=== PATIENT | male | born 1980 | race Caucasian/White ===

== ENCOUNTER 2022-05-19 21:41 | Inpatient (IN) | payer MEDICAID ==
[~2022-05-19] VITALS: Ht 170.2 cm; Wt 85.3 kg
[2022-05-19 21:41] VITALS: BP 80/52
--- NOTE | 2022-05-19 21:43 | NUR ---
PT [facility] ER BED 1
--- NOTE | 2022-05-19 21:45 | NUR ---
pt biba from [facility] with hypotentesion and alter mental status. he is not alert and history of stroke, and dialysis. pt has a trach connected to mechanical ventilator, he is unable to ambulate and pt has a g tube and has presuure ulcers in the sacrum. He has actively C DIFF Hx C DIFF, HTN, respiratory failure, bacteremia, trach, anemia aand ESRD
--- NOTE | 2022-05-19 21:45 | NUR ---
DIALYSIS DAYS //SAT
[2022-05-19] MEDS: NACL 0.9% 2,000 ML IV ONE ×2 (21:55→23:11)
[2022-05-19 22:09] LABS: BASOPHILS % (AUTO) 0.8 % (0.0-2.0); EOSINOPHILS # (AUTO) 0.1 K/uL (0-0.4); EOSINOPHILS % (AUTO) 2.9 % (0.0-4.0); LYMPHOCYTES # (AUTO) 0.5 K/uL (2.0-11.5); LYMPHOCYTES % (AUTO) 13.5 % (20.5-51.1); MEAN CORPUSCULAR HEMOGLOBIN 27 pg (27-31); MEAN CORPUSCULAR HGB CONC 32 g/dL (33-37); MEAN CORPUSCULAR VOLUME 85.8 fL (80-94); MONOCYTES # (AUTO) 0.3 K/uL (0.8-1.0); MONOCYTES % (AUTO) 7.8 % (1.7-9.3); NEUTROPHILS # (AUTO) 2.8 K/uL (1.8-7.7); PLATELET COUNT (AUTO) 203 K/uL (140-450); RED BLOOD CELL COUNT(AUTO) 2.09 MIL/uL (4.20-6.10); RED CELL DISTRIBUTION WIDTH 17.9 % (11.6-13.7); WHITE BLOOD COUNT (AUTO) 3.8 K/uL (4.8-10.8)
[2022-05-19 22:15] LABS: HEMATOCRIT 17.9 % (36-52); HEMOGLOBIN 5.7 g/dL (12.0-18.0)
[2022-05-19 22:27] VITALS: BP 80/52
[2022-05-19 22:29] LABS: PROTHROMBIN TIME 10.9 secs (10.8-13.4)
[2022-05-19 22:42] LABS: ALBUMIN 2.6 g/dL (3.4-5.0); ANION GAP 15.3 (8-16); CARBON DIOXIDE 27.8 mmol/L (21-32); POTASSIUM 4.1 mmol/L (3.5-5.1); TOTAL BILIRUBIN 0.5 mg/dL (0.0-1.0)
[2022-05-19 22:47] LABS: CREATININE 9.5 mg/dL (0.6-1.3)
[2022-05-19 22:59] LABS: BILIRUBIN,URINE NEGATIVE (NEGATIVE); BLOOD, URINE 3+ (NEGATIVE); LEUKOCYTE ESTERASE ,URINE NEGATIVE (NEGATIVE); NITRITE, URINE POSITIVE (NEGATIVE); PH,URINE 5.5 (5.0-9.0); UGLUCOSE NEGATIVE (NEGATIVE)
[2022-05-19 23:03] LABS: BASOPHILS # (AUTO) 0.1 K/uL (0.00-0.22); BASOPHILS % (AUTO) 1.3 % (0.0-2.0); EOSINOPHILS # (AUTO) 0.1 K/uL (0-0.4); EOSINOPHILS % (AUTO) 2.7 % (0.0-4.0); LYMPHOCYTES # (AUTO) 0.5 K/uL (2.0-11.5); LYMPHOCYTES % (AUTO) 12.3 % (20.5-51.1); MEAN CORPUSCULAR HEMOGLOBIN 27 pg (27-31); MEAN CORPUSCULAR HGB CONC 32 g/dL (33-37); MEAN CORPUSCULAR VOLUME 83.3 fL (80-94); MONOCYTES # (AUTO) 0.4 K/uL (0.8-1.0); MONOCYTES % (AUTO) 10.7 % (1.7-9.3); PLATELET COUNT (AUTO) 201 K/uL (140-450); RED BLOOD CELL COUNT(AUTO) 1.94 MIL/uL (4.20-6.10); RED CELL DISTRIBUTION WIDTH 17.1 % (11.6-13.7); WHITE BLOOD COUNT (AUTO) 4.2 K/uL (4.8-10.8)
[2022-05-19 23:19] LABS: HEMATOCRIT 16.2 % (36-52); HEMOGLOBIN 5.2 g/dL (12.0-18.0)
[2022-05-19] MEDS ORDERED: PIPERACILLIN/TAZOBACTAM 3.375 GM in DEXTROSE 5% 50 ML IV ONE (23:20)
[2022-05-19] MEDS ORDERED: VANCOMYCIN 1,000 MG in DEXTROSE 5% 250 ML IV ONE (23:20)
[2022-05-19] MEDS ORDERED: PANTOPRAZOLE 40 MG INJ VIAL IVP ONE (23:20)
[2022-05-19 23:22] LABS: APPEARANCE,URINE SLIGHTLY HAZY (CLEAR); COLOR,URINE DARK YELLOW (YELLOW)
[2022-05-19 23:41] LABS: CKMB RELATIVE INDEX 0.1 (0.0-2.5); CREATINE KINASE MB 0.4 ng/mL (0-3.6)
[2022-05-20] VITALS (24 sets, daily range): BP systolic 101–155; BP diastolic 54–93
[2022-05-20] MEDS ORDERED: VANCOMYCIN 1,000 MG VIAL ONE (00:08)
[2022-05-20] MEDS ORDERED: PIPERACILLIN/TAZOBACTAM 3.375 GM VIAL IV ONE (00:09)
[2022-05-20] MEDS ORDERED: NOREPINEPHRINE IV SCH (01:50)
[2022-05-20] MEDS ORDERED: DEXTROSE 5% IV SCH (01:50)
[2022-05-20] MEDS ORDERED: KEP500L PO (02:28)
[2022-05-20] MEDS ORDERED: LISI-486 PO (02:28)
[2022-05-20] MEDS ORDERED: PRO5 PO (02:28)
[2022-05-20] MEDS ORDERED: ACET-2619 PO (02:28)
[2022-05-20] MEDS ORDERED: FLOR250 PO (02:28)
[2022-05-20] MEDS ORDERED: ONDA-188 PO (02:28)
[2022-05-20] MEDS ORDERED: ASCO500T95 PO (02:28)
[2022-05-20] MEDS ORDERED: ZINC220C9 PO (02:28)
[2022-05-20] MEDS ORDERED: [UNRECOGNIZED DRUG - CODE] PO (02:28)
[2022-05-20] MEDS ORDERED: LEVO750T75 PO (02:28)
[2022-05-20] MEDS ORDERED: QUET25TA PO (02:28)
[2022-05-20] MEDS ORDERED: FLUC100T PO (02:28)
[2022-05-20] MEDS ORDERED: LEVE1000 PO (02:28)
--- NOTE | 2022-05-20 04:13 | NUR ---
Note saul in EDM - 05/20/22 at 0428 by [id number] Patient will be admitted to care of sepsis. Admited to icu. Will go to room 7. Belongings list completed. Report to david.
--- NOTE | 2022-05-20 04:28 | NUR ---
Patient will be admitted to [facility]. Admited tO ICU. Will go to room 7. Belongings list completed. Report to .
[2022-05-20] MEDS ORDERED: THERAHONEY GEL 42.5 GM TP SCH (06:05)
[2022-05-20] MEDS ORDERED: VANCOMYCIN PER PHARMACY MC PRN (07:15)
[2022-05-20] MEDS ORDERED: MORPHINE SULFATE 2 MG/ML SYR IVP PRN (07:20)
[2022-05-20] MEDS ORDERED: ONDANSETRON 4 MG/2 ML VIAL IVP PRN (07:20)
[2022-05-20] MEDS ORDERED: LORazepam 2 MG/ML VIAL IVP PRN (07:20)
[2022-05-20] MEDS ORDERED: MAG SULF 2000 MG/WATER PREMIX 50 ML IV PRN (07:20)
[2022-05-20] MEDS ORDERED: ACETAMINOPHEN 325 MG TAB PO PRN (07:20)
[2022-05-20] MEDS ORDERED: DOCUSATE 100 MG/10 ML UDC PO PRN (08:20)
[2022-05-20] MEDS ORDERED: POTASSIUM CHLORIDE 20% 40 MEQ/15 ML UDC PO PRN (08:20)
[2022-05-20] MEDS ORDERED: ZOLPIDEM 5 MG TAB PO PRN (08:20)
[2022-05-20] MEDS: levETIRAcetam 100 MG/ML ORASYR PO SCH ×2 (08:59→21:14)
[2022-05-20] MEDS: PANTOPRAZOLE 40 MG INJ VIAL IVP SCH (09:00)
[2022-05-20] MEDS: MIDODRINE 5 MG TAB PO SCH ×3 (09:00→17:37)
[2022-05-20 11:49] LABS: HEMATOCRIT 26.4 % (36-52); HEMOGLOBIN 8.7 g/dL (12.0-18.0)
[2022-05-20] MEDS ORDERED: Z-GUARD PASTE TP ONE (12:05)
[2022-05-20] MEDS: PIPERACILLIN/TAZOBACTAM 2.25 GM in DEXTROSE 5% 50 ML IV SCH ×2 (12:41→21:14)
--- NOTE | 2022-05-20 13:30 | NUR ---
WOUND CARE EVALUATION NOTES: REASON FOR EVALUATION: SACRAL WOUND WOUND ASSESSMENT COMPLETED ON THIS 41 Y/O MALE ADMITTED TO ICU FOR SEPSIS. PATIENT IS FROM [facility]. PAST MEDICAL HISTORY INCLUDES EPILEPSY, ESRD ON DIALYSIS, CHRONIC RESPIRATORY FAILURE ON VENT, SACRAL ULCER, HYDROCEPHALUS. ALL ABOVE INFORMATION WAS OBTAINED FROM THE ADMISSION H&P. PATIENT IS APHASIC. SKIN IS WARM TO TOUCH. TOTAL CARE PATIENT, REQUIRES ASSISTANCE WITH ALL ADLS. PLAN OF CARE AND PRESSURE PREVENTATIVE MEASURES DISCUSSED WITH PATIENT AND PRIMARY RN. PATIENT UNABLE TO COMPREHEND. PATIENT ADMITTED WITH PRESSURE ULCER TO SACRALCOCCYX AND PERINEAL MAD WITH DENUDED SKIN. COMORBIDITIES RELATED TO FURTHER SKIN BREAKDOWN SUCH IMPAIRED MOBILITY, LOW ALBUMIN LEVEL. INTEGUMENTARY: - SACRALCOCCYX PRESSURE ULCER STAGE III. WOUND BED RED, MINIMAL SEROSANGUINOUS DISCHARGE, GRANULATING, LESS THAN 15% SLOUGH, NO ODOR. PERIWOUND RED, MOIST, DENUDED. -PERINEAL REDNESS WITH DENUDED SKIN. NO DISCHARGE, NO ODOR. PERIWOUND RED, MOIST, DENUDED. RECOMMENDATIONS: - SACRALCOCCYX PRESSURE ULCER STAGE III: CLEANSE WITH NS, PAT DRY, APPLY THERAHONEY, APPLY Z-GAURD TO PERIWOUND, AND COVER WITH FOAM DRESSING DAILY AND PRN IF SOILED. - PERINEAL REDNESS WITH DENUDED SKIN: CLEANSE WITH NS OR SOAPY WATER, PAT DRY, APPLY Z-GAURD CREAM TO AREA, AND LEAVE CRYOGENICS ENGINEER DAILY AND PRN IF SOILED. - OFFLOAD BILATERAL HEELS BY PLACING BILATERAL HEEL PROTECTORS. - TURN AND REPOSITION PATIENT Q2H TO LEFT AND RIGHT SIDE TO OFFLOAD SACRALCOCCYX. - ASSESS AND MONITOR SKIN CONDITION DURING POSITION CHANGE. PLEASE PAY ATTENTION TO SACRALCOCCYX AND HEELS. - KEEP SKIN DRY AND CLEAN AT ALL TIMES. - RD CONSULT RECOMMENDATIONS DISCUSSED WITH PRIMARY RN. WILL FOLLOW-UP PATIENT Q7-10 DAYS AND PRN. PLEASE CONTACT WOUND CARE NURSE FOR ANY CONCERNS AND CHANGES IN WOUND CONDITION.
[2022-05-21] VITALS (29 sets, daily range): BP systolic 112–154; BP diastolic 70–99
[2022-05-21] MEDS: THERAHONEY GEL 42.5 GM TP SCH ×2 (00:24→13:02)
[2022-05-21] MEDS: Z-GUARD PASTE TP SCH ×2 (00:24→13:03)
[2022-05-21] MEDS: PIPERACILLIN/TAZOBACTAM 2.25 GM in DEXTROSE 5% 50 ML IV SCH ×3 (05:00→21:26)
[2022-05-21 06:49] LABS: ANION GAP 14.8 (8-16); POTASSIUM 3.8 mmol/L (3.5-5.1)
[2022-05-21 07:09] LABS: BASOPHILS % (AUTO) 1.1 % (0.0-2.0); EOSINOPHILS # (AUTO) 0.1 K/uL (0-0.4); EOSINOPHILS % (AUTO) 3.1 % (0.0-4.0); HEMATOCRIT 26.2 % (36-52); HEMOGLOBIN 8.8 g/dL (12.0-18.0); LYMPHOCYTES # (AUTO) 0.7 K/uL (2.0-11.5); LYMPHOCYTES % (AUTO) 20.2 % (20.5-51.1); MEAN CORPUSCULAR HEMOGLOBIN 28 pg (27-31); MEAN CORPUSCULAR HGB CONC 34 g/dL (33-37); MEAN CORPUSCULAR VOLUME 83.7 fL (80-94); MONOCYTES # (AUTO) 0.3 K/uL (0.8-1.0); MONOCYTES % (AUTO) 9.4 % (1.7-9.3); NEUTROPHILS # (AUTO) 2.3 K/uL (1.8-7.7); NEUTROPHILS % (AUTO) 66.2 % (42.2-75.2); PLATELET COUNT (AUTO) 250 K/uL (140-450); RED BLOOD CELL COUNT(AUTO) 3.12 MIL/uL (4.20-6.10); RED CELL DISTRIBUTION WIDTH 16.6 % (11.6-13.7); WHITE BLOOD COUNT (AUTO) 3.4 K/uL (4.8-10.8)
--- NOTE | 2022-05-21 07:22 | NUR ---
REPORT GIVEN TO LUIS ALBERTO, PT STABLE. NOTIFIED OF DOWNWARD TRENDING BUT STILL CRITICAL VALUE OF CREATININE OF 6
--- NOTE | 2022-05-21 07:25 | NUR ---
got report from the night nurse, pt resting moves the head at a time, track to vent.[email or web address]
[2022-05-21] MEDS: MIDODRINE 5 MG TAB PO SCH ×3 (08:58→17:19)
[2022-05-21] MEDS: PANTOPRAZOLE 40 MG INJ VIAL IVP SCH (08:58)
[2022-05-21] MEDS: levETIRAcetam 100 MG/ML ORASYR PO SCH ×2 (08:59→21:28)
--- NOTE | 2022-05-21 09:25 | NUR ---
PATIENT HAS BEEN SCREENED AND CATEGORIZED HIGH NUTRITION RISK. PATIENT WILL BE SEEN WITHIN 1-2 DAYS OF ADMISSION. 05/20/22-05/22/[address] [facility] CONSULT & REFERRAL RECEIVED FOR WOUNDS/PRESSURE ULCERS, DIET EDUCATION ON FOOD/DRUG INTERACTION, AND DIARRHEA > 3 DAYS.
--- NOTE | 2022-05-21 09:57 | NUR ---
RECEIVED ON A [place] [employer]APE R860 VENTILATOR PLUGGED INTO RED OUTLET TOLERATING WELL WITHOUT ADVERSE REACTIONS NOTED TO A EJ DCT #8 AIRWAY SECURED WITH A TRACH TIE CUFF PRESSURE CHECKED NOTED AMBU BAG AT BEDSIDE STABLE GOOD CHEST RISE DEEP TRACHEAL SUCTION FOR LARGE THICK YELLOW SECRETIONS AIRWAY PATENT
[2022-05-21] MEDS ORDERED: VANCOMYCIN 1,000 MG in DEXTROSE 5% 250 ML IV SCH (11:00)
--- NOTE | 2022-05-21 11:00 | NUR ---
PT SUCTIONED AND RESTING , THE MOTHER AT BED SIDE.[email or web address]
[2022-05-21] MEDS ORDERED: NOREPINEPHRINE 4 MG in DEXTROSE 5% 250 ML IV PRN (11:35)
[2022-05-21] MEDS: MUPIROCIN CA NASAL 2% 1GM TUBE NS SCH (12:02)
[2022-05-21] MEDS: CHLORHEXADINE GLUC 2% CLOTH TP SCH (12:38)
--- NOTE | 2022-05-21 13:00 | NUR ---
PT REPOSITIONED AND CHECKED FOR STOOL BUT NO STOOL FOR OCCULT COLLECTION.[email or web address]
--- NOTE | 2022-05-21 13:53 | NUR ---
SUCTIONED PT FOR EXCESSIVE SALIVATION, MOTHER AT BEDSIDE PT CALM RESTING. [email or web address].
--- NOTE | 2022-05-21 14:26 | NUR ---
05/21/22 RD INITIAL ASSESSMENT COMPLETED. PLEASE REFER TO NUTRITION ASSESSMENT UNDER CARE ACTIVITY FOR ESTIMATED NUTRITIONAL NEEDS. 1. RECOMMEND NEPRO WITH CARBSTEADY WITH A GOAL RATE OF 40 ML/HR WITH PROSOURCE BID (120 KCAL, 30 GRAMS PROTEIN). -START AT 10 ML/HR AND INCREASE BY 10 ML Q4H PT TOLERATES UNTIL GOAL RATE IS REACHED. -FWF 100 ML Q6H OR PER MD WITH PROSOURCE, THIS WILL PROVIDE 960 ML VOLUME, 1848 KCAL, & 108 GRAMS OF PROTEIN MEETING 92% OF KCAL NEEDS AND 100% OF PROTEIN NEEDS; ADEQUATE 2. MONITOR NPO STATUS 3. RD TO FOLLOW-UP 2-3 DAYS, HIGH RISK DAVY CHRISTIE RD
--- NOTE | 2022-05-21 15:27 | NUR ---
MOTHER AT BED SIDE PT RESTING ON SEMI BACK POSITION, IT IS OK OH DR FOR THE MOTHER TO USE ARTIFICIAL TEAR ON PT EYE.[email or web address] ,
--- NOTE | 2022-05-21 17:00 | NUR ---
STARTED THE FEEDING NEPHRO ORDERED, WITH 10CC WITH THE GOAL OF 40 BY INCREASING BY 10CC Q4HR. AND WATER 100CC [id number].[email or web address]
--- NOTE | 2022-05-21 19:14 | NUR ---
GIVEN REPORT TO THE NIGHT NURSE.[email or web address]
[2022-05-22] VITALS (12 sets, daily range): BP systolic 125–157; BP diastolic 85–99
[2022-05-22] MEDS: THERAHONEY GEL 42.5 GM TP SCH ×2 (01:00→13:00)
[2022-05-22] MEDS: Z-GUARD PASTE TP SCH ×2 (01:00→13:00)
--- NOTE | 2022-05-22 01:55 | NUR ---
PATIENT ADMITTED FROM ICU, PATIENT IS TRACH TO VENT WITH SETTINGS AC16, FIO2 24%, TIDAL VOLUME 450 AND PEEP 5. PATIENT ADMITTED FOR EVALUATION OF HYPOTENSION, WITH DIAGNOSIS OF PNEUMONIA, SEPSIS, UTI AND SEVERE ANEMIA. PATIENT PMH OF ESRD ON HEMODIALYSIS EVERY TTHS, ACCESS SITE ON LEFT UPPER CHEST TUNNELED CATHETER. PATIENT HAS GTUBE RUNNING NEPRO @ 10ML/HR, WITH WATER FLUSH OF 100ML EVERY 4 HRS, HOB ELEVATED FOR ASPIRATION PRECAUTION. PATIENT HAS UNSTAGEABLE WOUND ON SACRUM/COCCYX AREA, DRESSING CHANGED. INITIAL ASSESSMENT DONE, VITALS TAKEN T 98.1, P 85, BP 137/93, RESP 19 AND O2 SATS 94%. ALL SAFETY MEASURES IN PLACE.
--- NOTE | 2022-05-22 04:00 | NUR ---
VITALS T 98.3, P 84, BP 137/93, RESP 21, O2 SATS96%. NO SIGNS OF DISTRESS NOTED. MOUTH CARE DONE. ALL SAFETY MEASURES IN PLACE.
[2022-05-22] MEDS: PIPERACILLIN/TAZOBACTAM 2.25 GM in DEXTROSE 5% 50 ML IV SCH ×2 (04:55→13:00)
--- NOTE | 2022-05-22 04:55 | NUR ---
SCHEDULED IV ANTIBIOTIC GIVEN ORDERED.
[2022-05-22 07:07] LABS: EOSINOPHILS # (AUTO) 0.1 K/uL (0-0.4); EOSINOPHILS % (AUTO) 2.6 % (0.0-4.0); HEMATOCRIT 25.9 % (36-52); HEMOGLOBIN 8.9 g/dL (12.0-18.0); LYMPHOCYTES # (AUTO) 0.7 K/uL (2.0-11.5); LYMPHOCYTES % (AUTO) 17.9 % (20.5-51.1); MEAN CORPUSCULAR HEMOGLOBIN 28 pg (27-31); MEAN CORPUSCULAR HGB CONC 34 g/dL (33-37); MEAN CORPUSCULAR VOLUME 82.7 fL (80-94); MONOCYTES # (AUTO) 0.4 K/uL (0.8-1.0); MONOCYTES % (AUTO) 10.3 % (1.7-9.3); NEUTROPHILS # (AUTO) 2.7 K/uL (1.8-7.7); NEUTROPHILS % (AUTO) 68.2 % (42.2-75.2); PLATELET COUNT (AUTO) 291 K/uL (140-450); RED BLOOD CELL COUNT(AUTO) 3.13 MIL/uL (4.20-6.10); RED CELL DISTRIBUTION WIDTH 16.9 % (11.6-13.7); WHITE BLOOD COUNT (AUTO) 3.9 K/uL (4.8-10.8)
--- NOTE | 2022-05-22 07:26 | NUR ---
ENDORSED PATIENT TO DAY NURSE FOR CONTINUITY OF CARE. PATIENT IN STABLE CONDITION.
[2022-05-22 07:38] LABS: ANION GAP 19.4 (8-16); CARBON DIOXIDE 23.1 mmol/L (21-32); POTASSIUM 3.5 mmol/L (3.5-5.1)
--- NOTE | 2022-05-22 07:38 | NUR ---
RECEIVED ON A [employer] R860 VENTILATOR PLUGGED INTO RED OUTLET TOLERATING WELL WITHOUT COMPLICATIONS NOTED TO A EJ DCT #8 AIRWAY SECURED WITH A OLMAN TRACH TIE CUFF PRESSURE CHECKED NOTED AMBU BAG AT BEDSIDE GOOD CHEST RISE DEEP TRACHEAL SUCTION FOR SMALL THIN PALE YELLOW SECRETIONS AIRWAY PATENT
[2022-05-22 07:49] LABS: CREATININE 7.3 mg/dL (0.6-1.3)
[2022-05-22] MEDS: MIDODRINE 5 MG TAB PO SCH ×3 (09:00→17:00)
[2022-05-22] MEDS: levETIRAcetam 100 MG/ML ORASYR PO SCH (09:57)
[2022-05-22] MEDS: PANTOPRAZOLE 40 MG INJ VIAL IVP SCH (09:57)
--- NOTE | 2022-05-22 10:20 | NUR ---
NO EVIDENCE FOR RESPIRATORY DISTRESS NOTED EQUAL CHEST RISE AIRWAY PATENT
[2022-05-22] MEDS ORDERED: PIPE50SO5 IV (11:56)
[2022-05-22] MEDS ORDERED: Vancomycin Per Pharmacy MC (11:57)
[2022-05-22] MEDS: CHLORHEXADINE GLUC 2% CLOTH TP SCH (12:00)
[2022-05-22] MEDS: MUPIROCIN CA NASAL 2% 1GM TUBE NS SCH (12:00)
--- NOTE | 2022-05-22 15:08 | NUR ---
LEDA GORMAN RECEIVED ORDER FOR PT TO GO BACK TO SNF. [facility] TO [facility]; LOCATED AT [address] [facility] [facility] [id number]. SPOKE WITH [facility] WHO ACCEPTED PT BACK, AND PATIENT WILL BE GOING BACK TO ROOM 225-[address] FLORES. TRANSPORTATION WAS SET UP WITH [facility]AY AT [facility] WITH A 1700 CORE CHECKER TIME. CALL FOR REPORT NUMBER IS . NURSE YOLIE AND MOTHER BRIANA AWARE OF THE ABOVE INFORMATION.
--- NOTE | 2022-05-22 16:33 | NUR ---
STABLE NO SOB NOTED GOOD CHEST RISE DEEP TRACHEAL SUCTION FOR LARGE THIN YELLOW SECRETIONS AIRWAY MOTHER AT BEDSIDE
--- NOTE | 2022-05-22 18:32 | NUR ---
patient awaiting transport. report given to Bobbi LOUISE at [facility].
[2022-05-23] MEDS ORDERED: EPOETIN ALFA SUBQ SCH (09:00)
[2022-05-23] MEDS ORDERED: EPOETIN ALFA-EPBX 10,000 UNITS/ML VIAL SUBQ SCH (09:00)
== END 2022-05-22 19:06 | DRG 720 ==
LOC: MED 21:41 → MIC 05-20 01:53 → MTU 05-22 01:56
PROVIDERS: ADMIT Family Medicine; ATTEND Family Medicine
PROC: 5A1945Z Respiratory Ventilation, 24-96 Consecutive Hours (ICD-10-PCS; 2022-05-19)
PROC: 30233N1 Transfusion of Nonautologous Red Blood Cells into Peripheral Vein, Percutaneous Approach (ICD-10-PCS; principal; 2022-05-20)
PROC: 5A1D70Z Performance of Urinary Filtration, Intermittent, Less than 6 Hours Per Day (ICD-10-PCS; 2022-05-20)
PROC: 05HY33Z Insertion of Infusion Device into Upper Vein, Percutaneous Approach (ICD-10-PCS; 2022-05-20)
DX: A41.9 Sepsis, unspecified organism (principal); N17.0 Acute kidney failure with tubular necrosis; R65.21 Severe sepsis with septic shock; E43 Unspecified severe protein-calorie malnutrition; J18.9 Pneumonia, unspecified organism; M62.82 Rhabdomyolysis; N18.6 End stage renal disease; Z93.0 Tracheostomy status; D62 Acute posthemorrhagic anemia; G40.909 Epilepsy, unspecified, not intractable, without status epilepticus; L98.498 Non-pressure chronic ulcer of skin of other sites with other specified severity; Z20.822 Contact with and (suspected) exposure to COVID-19; Z79.1 Long term (current) use of non-steroidal anti-inflammatories (NSAID); Z99.2 Dependence on renal dialysis; Z79.899 Other long term (current) drug therapy; Z93.1 Gastrostomy status; Z98.2 Presence of cerebrospinal fluid drainage device; Z68.29 Body mass index [BMI] 29.0-29.9, adult
CPT/HCPCS: 36415; 36430; 71045; 80048; 80053; 80202; 81001; 82272; 82550; 82553; 83605; 83735; 83874; 83880; 84484; 85018; 85025; 85610; 85730; 86886; 86900; 86901; 86920; 87040; 87081; 87086; 93005; 94002; 94003; 96361; 96374; 96375; 99291; C9113; J1644; J2543; J3370; J7060; P9016